=== PATIENT | male | born 1990 | race Caucasian/White ===

== ENCOUNTER 2024-02-15 16:26 | Emergency (ER) | payer SELFPAY ==
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
[2024-02-15 16:34] VITALS: BP 139/95; PULSE 87; RESP 16; TEMP 36.4; O2SAT 100
== END 2024-02-15 17:13 | disposition home or self-care (01) ==
PROVIDERS: Emergency Provider Nurse Practitioner Family
DX: S39.012A Strain of muscle, fascia and tendon of lower back, initial encounter (principal); V43.92XA Unspecified car occupant injured in collision with other type car in traffic accident, initial encounter
CPT/HCPCS: 72100; 99203; G0463

== ENCOUNTER 2024-04-25 13:56 | Emergency (ER) | payer OTHER, SELFPAY ==
--- NOTE | ~2024-04-25 | XR_ITS ---
EXAMINATION: XR chest 2V DATE: 04/25/2024 14:26 INDICATION: Cough and fever TECHNIQUE: PA and lateral views of the chest were obtained. COMPARISON: None FINDINGS: The lungs are clear with no focal airspace opacities, pulmonary edema, pleural effusion or pneumothor ax. The cardiomediastinal silhouette is normal. Mild thoracic spondylosis. IMPRESSION: 1. No acute cardiopulmonary disease. Reviewed, dictated and finalized at location A. T DEMONSTRATOR
--- NOTE | 2024-04-25 14:02 | ED_ITS ---
HPI - URI/Sore Throat General Chief Complaint: Upper Respiratory Infection Stated Complaint: Upper Respiratory Symptoms Source: patient and RN notes reviewed Mode of arrival: ambulatory Limitations: no limitations History of Present Illness HPI Narrative: Patient is a 33-year-old male who presents to the [facility] with multiple complaints. Patient states that he has had an ongoing frequent nonproductive cough for the last 2 weeks. He states that on Wednesday, he developed sweats, chills, and body aches. He also states that he developed a headache and sore throat. He denies chest pain or shortness of breath. Denies abdominal pain, nausea, vomiting, diarrhea. He is unsure known fever. Related Data Home Medications ?Medication ?Instructions ?Recorded ?Confirmed ?Last Taken ?Type fexofenadine 180 mg tablet 180 mg PO DAILY 04/25/24 04/25/24 Unknown History (Lisa Allergy) Allergies Allergy/AdvReac Type Severity Reaction Status Date / Time No Known Allergies Allergy Verified 04/25/24 14:06 Review of Systems Review of Systems: CONSTITUTIONAL: Reports chills and sweats. EYES: Denies visual changes, redness, or discharge. ENT: Denies otalgia. Reports sore throat CARDIOVASCULAR: Denies chest pain, palpitations, or edema. RESPIRATORY: Reports cough but denies dyspnea. GASTROINTESTINAL: Denies abdominal pain, nausea, vomiting, or diarrhea. GENITOURINARY: Denies dysuria or hematuria. SKIN: Denies rash or itching. MUSCULOSKELETAL: Denies back pain, joint pain, But reports myalgia. NEUROLOGIC: reports headache but denies numbness or weakness. Pertinent positives per HPI. PMFSH Comments At the time of my signature, I reviewed and agree with the nursing past medical, surgical, social, and family history. There is no relevant family history pertinent to the patient complaint. Exam Narrative: GENERAL: This is a well-nourished, well-developed patient, in no apparent distress. HEAD: normocephalic, atraumatic. EYES: Sclera clear/white. Vision is grossly intact. EARS: External ears normal. Hearing grossly intact. NOSE: External nose normal with no obvious nasal discharge, nares without redness, no rhinorrhea. THROAT: Mucous membranes moist, posterior pharynx clear. NECK: Neck supple, non-tender without lymphadenopathy, masses or thyromegaly. CARDIOVASCULAR: Regular rate and rhythm without murmurs, gallops, or rubs. RESPIRATORY: Clear to auscultation. Breath sounds equal bilaterally. No wheezes, rales, or rhonchi. GASTROINTESTINAL: Abdomen soft, non-tender, nondistended. Bowel sounds are active. No hepato-splenomegaly, or palpable masses. No guarding. SKIN: warm, intact with no suspicious lesions or rash, good texture and turgor. NEURO: awake, alert, and oriented to person, place and time. There were no obvious focal neurologic abnormalities. Course Course Level of Care: Express Care Visit Vital Signs Vital signs: Vital Signs Temperature 99.3 F 04/25/24 14:06 Pulse Rate 118 H 04/25/24 14:06 Respiratory Rate 16 04/25/24 14:06 Blood Pressure 140/89 04/25/24 14:06 Pulse Oximetry 97 04/25/24 14:06 Temperature 99.3 F 04/25/24 14:06 Pulse Rate 118 H 04/25/24 14:06 Respiratory Rate 16 04/25/24 14:06 Blood Pressure 140/89 04/25/24 14:06 Pulse Oximetry 97 04/25/24 14:06 Reviewed MDM - URI/Sore Throat MDM Narrative Medical decision making narrative: Take steroids as directed. May use the inhaler every 4-6 hours as needed for coughing. Increase fluids at home. Avoid any and all smoke. May use a humidifier in the bedroom. Increase your Vitamin C. Follow-up with personal physician in 2-5 days. Differential Diagnosis Differential diagnosis: Likely upper respiratory infection, viral infection, bronchitis, influenza and other (covid, pneumonia) Lab Data Attestation: I reviewed the patient's lab results. Labs: Lab Results 04/25/24 Range/Units 14:33 POC Influenza A Ag Negative (Negative) POC Influenza B Ag Negative (Negative) POC SARS CoV-2 Ag Negative (Negative) Imaging Data Attestation: I personally reviewed and interpreted this imaging study as follows: Radiologist's impression: Close Chest X-Ray (Signed) Salbador Ruth - 04/25/24 Launch?[facility] [address] [place] [address] XRay Report Signed Patient: Rosanne Mead : 1990 MR#: [id number] Age: 33 Acct:[id number] Loc: [facility] ADM Date: 04/25/24Attending Dr: Ordering Physician: Leigh Davila APRN Date of Service: 04/25/24 Procedure(s): XR chest 2V Accession Number(s): [id number] cc: Leigh Davila APRN; ASSOCIATE BIOLOGICAL SALES PHYSICIAN~ EXAMINATION: XR chest 2V DATE: 04/25/2024 14:26 INDICATION: Cough and fever TECHNIQUE: PA and lateral views of the chest were obtained. COMPARISON: None FINDINGS: The lungs are clear with no focal airspace opacities, pulmonary edema, pleural effusion or pneumothorax. The cardiomediastinal silhouette is normal. Mild thoracic spondylosis. IMPRESSION: 1. No acute cardiopulmonary disease. Reviewed, dictated and finalized at location A. N BUILDING ENERGY ENGINEER Please be advised this is a medical document. It is intended for [id number] communication. It is written in medical language and may contain unfamiliar abbreviations or verbiage. Medical documents are intended to carry relevant information, facts as evident, and the clinical opinion of the practitioner at the time of the encounter. This report may have been done utilizing a voice recognition system. Attempts have been made to correct errors. However, there may be uncorrected grammatical, spelling, and recognition errors present. The file time of this note does not necessarily represent the time of service. Dictated By: Salbador Ruth MD 04/25/24 1434 Signed By: <Electronically signed by Salbador Ruth MD in OV> 04/25/24 1440 Critical Care Time Critical Care Time Critical Care Time: No Discharge Plan Discharge Clinical Impression: Acute viral bronchitis Patient Disposition: Home, Self-Care Condition: Stable Instructions: Acute Bronchitis (ED) Additional Instructions: Take steroids as directed. May use the inhaler every 4-6 hours as needed for coughing. Increase fluids at home. Avoid any and all smoke. May use a humidifier in the bedroom. Increase your Vitamin C. Follow-up with personal physician in 2-5 days. Patient Language: Maltese Prescriptions: New prednisone 50 mg tablet 50 mg PO DAILY 5 Days Qty: 5 0RF albuterol sulfate [Ventolin HFA] 90 mcg/actuation HFA aerosol inhaler 2 puff inhalation QID PRN (Reason: shortness of breath or wheezing) Qty: 6.7 0RF benzonatate 100 mg capsule 100 mg PO TID PRN (Reason: cough) Qty: 20 0RF No Action fexofenadine [Lisa Allergy] 180 mg tablet 180 mg PO DAILY Follow-up/Referrals: PHYSICIAN,ASSOCIATE BIOLOGICAL SALES [Primary Care Provider] - Stand Alone Forms: Work/School Release IP Time of Disposition: 15:02
[2024-04-25 14:06] VITALS: BP 140/89; PULSE 118; RESP 16; TEMP 37.4; O2SAT 97
[2024-04-25 14:35] LABS: EDCOVIDSCREEN Negative (Negative); EDINFLUASCREEN Negative (Negative); EDINFLUBSCREEN Negative (Negative)
== END 2024-04-25 15:06 | disposition home or self-care (01) ==
PROVIDERS: Emergency Provider Nurse Practitioner
DX: J20.8 Acute bronchitis due to other specified organisms (principal); Z20.822 Contact with and (suspected) exposure to COVID-19
CPT/HCPCS: 71046; 87426; 87804; 99213; G0463